=== PATIENT | female | born 1945 | race Caucasian/White ===

== ENCOUNTER 2024-07-18 14:18 | Outpatient (CLI) | payer MEDICARE ==
[~2024-07-18] VITALS: Ht 158.8 cm; Wt 82.6 kg
[~2024-07-18 14:18] MED LIST: AMLO2.5T2 PO; CALC-1051 PO; CHOL200016 PO; CYCL-1 PO; ENAL20TA75 PO; HYDR25TA4 PO; LOVA20TA2 PO; MAGN200T PO; POTA99TA26 PO; TRAM50TA2 PO; UBID1CAP54 PO; vitamin B12 SQ
[2024-07-18 14:45] LABS: TOTAL HEMOGLOBIN 14.5 G/dl (12.0-16.0)
[2024-07-18] MEDS: albuterol 2.5 MG/3 ML nebule NEB ONE (15:25)
[2024-07-18 15:32] VITALS: PULSE 78; RESP 16; O2SAT 95
[2024-07-18 15:43] VITALS: PULSE 77; RESP 16
== END 2024-07-18 23:59 | disposition home or self-care (01) ==
LOC: RT 14:18
PROVIDERS: ATTEND Internal Medicine Pulmonary Disease
DX: J44.9 Chronic obstructive pulmonary disease, unspecified (principal)
CPT/HCPCS: 85018; 94060; 94727; 94729; 94760; A6402; A6449